=== PATIENT | female | born 1945 | race American Indian/Alaskan Native ===

== ENCOUNTER 2017-02-08 08:35 | Day surgery (SDC) | payer MEDICARE, OTHER ==
[2017-02-08 09:50] LABS: Hematocrit 37.8 % (30.3-42.9); Hemoglobin 12.9 gm/dl (10.1-14.3); Mean Corpuscular HGB Conc 34 % (30-34); Mean Corpuscular Hemoglobin 31 pg (28-32); Mean Corpuscular Volume 91 fl (79-97); Platelet Count 185 K/mm3 (140-440); Red Blood Count 4.17 M/mm3 (3.65-5.03); Red Cell Distribution Width 14.3 % (13.2-15.2); White Blood Count 4.2 K/mm3 (4.5-11.0)
[2017-02-08 10:00] LABS: INR 1.06 (0.87-1.13)
[2017-02-08] MEDS ORDERED: NACL 0.9% 500 ML 500 ML IV SCH (10:00)
[2017-02-08 10:09] LABS: Anion Gap 13 mmol/L; BUN/Creatinine Ratio 21.66; Blood Urea Nitrogen 13 mg/dL (7-17); Calcium 9.4 mg/dL (8.4-10.2); Carbon Dioxide 30 mmol/L (22-30); Chloride 102.2 mmol/L (98-107); Glucose 106 mg/dL (65-100); Sodium 141 mmol/L (137-145)
[2017-02-08 10:27] LABS: Blastocytes % (Manual) 0 %
[2017-02-08 10:28] LABS: Anisocytosis 1+; Diff Status Complete; Ovalocytes Few
[2017-02-08] MEDS ORDERED: CALAN ONE (11:23)
[2017-02-08] MEDS ORDERED: XYLOCAINE 2% INFILTRATI ONE (11:23)
[2017-02-08] MEDS ORDERED: HEPARIN 10,000 UNITS/10 ML ONE (11:23)
[2017-02-08] MEDS ORDERED: NITROGLYCERIN SYRINGE 3 ML ONE (11:23)
[2017-02-08] MEDS ORDERED: HEPARIN/NS 5000 UNIT/500ML(CATH LAB) 500 ML IR ONE ×2 (11:23→11:25)
[2017-02-08] MEDS: SUBLIMAZE ONE ×2 (11:40→11:55)
[2017-02-08] MEDS: VERSED ONE ×2 (11:40→11:55)
--- NOTE | 2017-02-08 12:16 | Short Stay Summary ---
Short Stay Documentation Date of service: 02/08/17 - History H&P: obtained from office - Allergies and Medications Current Medications: Allergies No Known Allergies Allergy (Verified 02/08/17 09:09) Home Medications Medication Instructions Recorded Confirmed Last Taken Type Aspirin EC [Aspirin Enteric Coated 81 mg PO DAILY 02/08/17 02/08/17 02/08/17 09: 35 History TAB] Atenolol [Atenolol] 50 mg PO DAILY 02/08/17 02/08/17 02/07/17 History 50mg Ergocalciferol(Vitamin D2)(Nf) 50,000 units PO QWEEK 02/08/17 02/08/17 02/05/17 History [Vitamin D (Nf)] [id number] Levothyroxine [Synthroid] 100 mg PO DAILY 02/08/17 02/08/17 02/07/17 History 100mg Omeprazole [Omeprazole] 40 mg PO DAILY 02/08/17 02/08/17 02/07/17 History 40mg Triamter/Hctz 37.5-25 mg 1 tab PO DAILY 02/08/17 02/08/17 02/07/17 History [Maxzide-25] 1 tab amLODIPine [Norvasc] 10 mg PO DAILY 02/08/17 02/08/17 02/07/17 History 10mg Active Medications Sodium Chloride (Nacl 0.9% 500 Ml) 500 mls @ 50 mls/hr IV DIRECT KAYCE Stop: 02/08/17 19:59 Last Admin: 02/08/17 10:02 Dose: 50 mls/hr - Brief post op/procedure progress note Date of procedure: 02/08/17 Pre-op diagnosis: chest pain Post-op diagnosis: same Procedure: see report Anesthesia: local Estimated blood loss: none Pathology: none - Disposition Condition at discharge: Good - Discharge Diagnoses (1) CAD (coronary artery disease) Status: Chronic Qualifiers: Coronary Disease-Associated Artery/Lesion type: [place] artery [place] vs. transplanted heart: [place] heart Associated angina: without angina Qualified Code(s): I25.10 - Atherosclerotic heart disease of [place] coronary artery without angina pectoris (2) Hyperlipemia, mixed Status: Chronic (3) Hypertension Status: Chronic Qualifiers: Hypertension type: essential hypertension Qualified Code(s): I10 - Essential (primary) hypertension (4) Chest pain at rest Status: Chronic Short Stay Discharge Plan Activity: advance as tolerated Follow up with: NOEL SOLITARIO MD [Primary Care Provider] - 7 Days
[2017-02-08 14:14] VITALS: BP 126/52
--- NOTE | 2017-02-08 16:02 | Cardiac Catherization Report ---
ORDERING PHYSICIAN: Jaime Sosa M.D. CLINICAL INFORMATION: This is a 71-year-old -[place] female with history of persistent left arm pain to chest wall and has history of cardiac catheterization in 2014 revealed calcification in its left coronary system with a very small occluded diagonal one. Left heart catheterization performed with the right radial artery, sterile technique, local anesthesia. There was moderate to severe tortuosity in the right innominate and left system was engaged with a 5-Colombian JL 4.5. FINDINGS: Left main is a large caliber vessel, patent. LAD is a large caliber vessel. It is patent with mild luminal irregularities. Diagonal 1 is a medium caliber vessel, multiple branches that are patent with mild luminal irregularities. Circumflex and AV groove is a large caliber vessel, patent. Obtuse marginal 1 and obtuse marginal 2 are medium caliber vessels, patent with moderate tortuosity. RCA was subselective and AR mod catheter, is a large dominant vessel is patent from proximally distally with mild luminal irregularities. PDA and PLV are medium caliber vessels that are patent and normal. LV gram done in the ARABIC and MAHMOOD view shows normal LV function, EF 55-60%, LVEDP is 8 mmHg, LV is 147/80, aortic is 148/62. No gradient across the aortic valve on pullback. 5-Colombian catheters were taken over a guidewire, 6-Colombian radial sheath was discontinued. Radial dressing applied. No hematoma. No bleeding. SUMMARY: 1. Left main patent, LAD patent with mild luminal irregularities. Diagonal 1 patent multiple branches patent, circumflex patent, OM1 and OM2 are patent. RCA, patent with mild luminal irregularities. 2. Normal LV function. 3. Continue risk factor modification. JOB# [id number] ARIS/RACHEL
== END 2017-02-08 14:46 | disposition home or self-care (01) ==
LOC: OPU 08:35
PROVIDERS: ATTEND Internal Medicine
DX: I25.10 Atherosclerotic heart disease of native coronary artery without angina pectoris (principal); E78.2 Mixed hyperlipidemia; I10 Essential (primary) hypertension; E66.9 Obesity, unspecified; Z68.36 Body mass index [BMI] 36.0-36.9, adult; Z79.899 Other long term (current) drug therapy; Z87.891 Personal history of nicotine dependence; Z82.49 Family history of ischemic heart disease and other diseases of the circulatory system
CPT/HCPCS: 36415; 80048; 85007; 85025; 85610; 85730; 93005; 93010; 93458; C1769; C1894; J1644; J2250; J3010; J7040; Q9967

== ENCOUNTER 2019-01-09 09:27 | Outpatient (CLI) | payer MEDICARE ==
--- NOTE | 2019-01-09 10:51 | Mammography Report ---
BILATERAL DIGITAL SCREENING MAMMOGRAM with CAD : 01/09/19 09:27:00 CLINICAL: Routine screening. COMPARISON:01/19/18, 01/04/18 and 12/30/16 FINDINGS: The breasts are heterogeneously dense, which may obscure small masses.Stable low-density circumscribed right upper subcentimeter nodule. No new mass, architectural distortion or suspicious calcifications. IMPRESSION: No mammographic evidence of malignancy. BI-RADS CATEGORY: 2 -- Benign RECOMMENDATION: Routine mammographic screening in one year. COMMENT: Patient follow-up letters are generated by our [employer] application.
== END 2019-01-09 09:28 | disposition home or self-care (01) ==
LOC: SPVWC 09:27
PROVIDERS: ATTEND Surgery
DX: Z12.31 Encounter for screening mammogram for malignant neoplasm of breast (principal); E78.5 Hyperlipidemia, unspecified; I10 Essential (primary) hypertension; K21.9 Gastro-esophageal reflux disease without esophagitis; Z90.89 Acquired absence of other organs; Z90.710 Acquired absence of both cervix and uterus
CPT/HCPCS: 77067

== ENCOUNTER 2021-05-14 10:43 | Outpatient (CLI) | payer MEDICARE ==
--- NOTE | 2021-05-15 10:44 | Mammography Report ---
DIGITAL SCREENING MAMMOGRAM WITH CAD, 05/14/2021 CLINICAL INFORMATION / INDICATION: Routine screening mammography. SCREENING MAMMO Z12.31 TECHNIQUE: Digital bilateral 2D mammography was obtained in the craniocaudal and mediolateral obliqu e projections. This examination was interpreted with the benefit of Computer-Aided Detection analysis . COMPARISON: 01/09/2019, 01/04/2018, 01/15/2020 FINDINGS: Breast Density: The breasts are heterogeneously dense, which may obscure small masses. No dominant mass, suspicious calcifications, or architectural distortion in either breast. There is a stable nodule in the right. There is a pacemaker on the left. IMPRESSION: No mammographic evidence of malignancy. Follow up recommendation: Routine yearly BI-RADS Category 2: Benign. A "normal" or negative report should not discourage follow up or biopsy of a clinically significant f inding. A written summary of these findings will be mailed to the patient. The patient will be entered into a mammography reporting system which will generate a reminder letter for the patient's next appointmen t at the appropriate interval. The [employer] recommends yearly mammograms starting at age 40 and continuing as l andrew as a woman is in good health. Breast MRI is recommended for women with an approximate 20-25% or greater lifetime risk of breast cancer, including women with a strong family history of breast or [place] cancer or who have been treated for Hodgkin's disease. Signer Name: Amador Dickey MD Signed: 05/15/2021 10:40 AM Workstation Name: [id number]
== END 2021-05-14 10:44 | disposition home or self-care (01) ==
LOC: SPVWC 10:43
PROVIDERS: ATTEND Surgery
DX: Z12.31 Encounter for screening mammogram for malignant neoplasm of breast (principal); N64.89 Other specified disorders of breast; N63.10 Unspecified lump in the right breast, unspecified quadrant
CPT/HCPCS: 77063; 77067

== ENCOUNTER 2022-05-19 08:13 | Outpatient (CLI) | payer MEDICARE | END 2022-05-19 08:14 | disposition home or self-care (01) | LOC: SPVWC 08:13 | PROVIDERS: ATTEND Surgery | DX: Z12.31 Encounter for screening mammogram for malignant neoplasm of breast (principal) | CPT/HCPCS: 77067 ==